=== PATIENT | male | born 1975 | race Two or more races ===

== ENCOUNTER → 2022-08-13 | Emergency (ER) | payer OTHER ==
[~2022-08-13] VITALS: Ht 152.4 cm; Wt 99.8 kg
[~2022-08-13] MED LIST: KETO10TA2 PO; NORFLEX100MG PO
== END | disposition home or self-care (01) ==
LOC: ER 23:10
DX: S20.221A Contusion of right back wall of thorax, initial encounter (principal); W10.9XXA Fall (on) (from) unspecified stairs and steps, initial encounter; Y93.9 Activity, unspecified; Y92.89 Other specified places as the place of occurrence of the external cause; Y99.9 Unspecified external cause status; S69.92XA Unspecified injury of left wrist, hand and finger(s), initial encounter

== ENCOUNTER 2024-06-14 13:27 | Emergency (ER) | payer OTHER ==
[~2024-06-14] VITALS: Ht 175.3 cm; Wt 102.1 kg
[2024-06-14] MEDS ORDERED: DEXAMETHASONE SODIUM PHOSPHATE 4 MG/ML VIAL IM ONE (15:45)
[2024-06-14] MEDS ORDERED: ORPHENADRINE CITRATE 30 MG/ML AMPUL IM ONE (15:45)
[2024-06-14] MEDS ORDERED: DEXAMETHASONE SODIUM PHOSPHATE 4 MG/ML VIAL ONE (15:57)
[2024-06-14] MEDS ORDERED: ORPHENADRINE CITRATE 30 MG/ML AMPUL ONE (15:57)
== END 2024-06-14 16:10 ==
LOC: ER 13:29
DX: M62.838 Other muscle spasm (principal); M75.52 Bursitis of left shoulder